=== PATIENT | male | born 1975 | race African-American/Black ===

== ENCOUNTER 2020-10-15 04:13 | Emergency (ER) | payer MEDICAID, OTHER ==
[~2020-10-15] VITALS: Ht 193 cm; Wt 127.0 kg
[2020-10-15 04:20] VITALS: BP 182/83
== END 2020-10-15 06:00 | disposition home or self-care (01) ==
LOC: ER 04:15
DX: S90.02XA Contusion of left ankle, initial encounter (principal); I10 Essential (primary) hypertension; Z60.2 Problems related to living alone; W23.0XXA Caught, crushed, jammed, or pinched between moving objects, initial encounter; Y93.89 Activity, other specified; Y92.89 Other specified places as the place of occurrence of the external cause; Y99.8 Other external cause status
CPT/HCPCS: 73610-TC